=== PATIENT | female | born 1965 | race Caucasian/White ===

== ENCOUNTER 2024-03-09 16:17 | Outpatient (CLI) | payer MEDICAID | END 2024-03-09 23:59 | disposition home or self-care (01) | LOC: RAD 16:17 | PROVIDERS: ATTEND Nurse Practitioner Family | DX: E28.2 Polycystic ovarian syndrome (principal) | CPT/HCPCS: 76830 ==

== ENCOUNTER 2025-03-20 17:56 | Emergency (ER) | payer MEDICAID ==
[~2025-03-20] VITALS: Ht 175.3 cm; Wt 88.6 kg
[2025-03-20 18:04] VITALS: BP 124/64; PULSE 85; RESP 18; O2SAT 100
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
[2025-03-20] MEDS ORDERED: NEO/5DRO7 RIGHTEYE (19:37)
[2025-03-20] MEDS: neomy sulf/polymyx B sulf/HC 7.5ml ophthalmic suspension RIGHTEYE STA (19:46)
[2025-03-20 20:02] VITALS: TEMP 98.4
== END 2025-03-20 20:08 | disposition home or self-care (01) ==
LOC: ER 17:59
DX: H10.89 Other conjunctivitis (principal); Z88.0 Allergy status to penicillin
CPT/HCPCS: 99283